=== PATIENT | male | born 1980 | race Hispanic/Latino ===

== ENCOUNTER → 2022-07-16 12:40 | Outpatient (CLI) | payer SELFPAY ==
--- NOTE | 2022-07-16 12:52 | DI.RAD.S_ITS ---
PROCEDURE: XR ANKLE LT MIN 3V INDICATIONS: fall 6' onto foot, medio-posterior bruis/pain, diff walk TECHNIQUE: 3 views of the ankle were acquired. COMPARISON: None. FINDINGS: Bones: No fractures or dislocations. Ankle mortise is normally aligned. No suspicious bony lesions. Soft tissues: No tibiotalar joint effusion. Achilles tendon appears normal. IMPRESSION: No acute fracture. No osseous lesion. If symptoms and/or clinical suspicion for pathology persist, further assessment with repeat, or advanced imaging (e.g., CT, MRI, or bone scan) may be helpful for further assessment. Dictated by: Rehana Best M.D. on 07/16/2022 at 13:23 Approved by: Rehana Best M.D. on 07/16/2022 at 13:23
--- NOTE | 2022-07-16 12:52 | DI.RAD.S_ITS ---
PROCEDURE: XR FOOT LT MIN 3V INDICATIONS: fall 6' onto foot, medio-posterior bruis/pain, diff walk TECHNIQUE: 3 views of the foot were acquired. COMPARISON: None. FINDINGS: Bones: No fractures or dislocations. No suspicious bony lesions. Soft tissues: No tibiotalar joint effusion. Achilles tendon appears normal. IMPRESSION: No acute fracture. No osseous lesion. If symptoms and/or clinical suspicion for pathology persist, further assessment with repeat, or advanced imaging (e.g., CT, MRI, or bone scan) may be helpful for further assessment. Dictated by: Rehana Best M.D. on 07/16/2022 at 13:22 Approved by: Rehana Best M.D. on 07/16/2022 at 13:22
== END ==
PROVIDERS: Referring Provider Student in an Organized Health Care Education/Training Program; Visit Provider Student in an Organized Health Care Education/Training Program
DX: M25.572 Pain in left ankle and joints of left foot
CPT/HCPCS: 73610; 73630